=== PATIENT | female | born 1960 | race Caucasian/White ===

== ENCOUNTER 2023-08-29 10:57 | Emergency (ER) | payer BC, SELFPAY ==
[2023-08-29 11:01] VITALS: BP 164/104
[2023-08-29 11:41] VITALS: BMI 28.4
[2023-08-29 12:01] LABS: % Basophils 0.6 % (0-2); % Eosinophils 3.1 % (0-6); % Immature Granulocytes 0.1 % (0-0.5); % Lymphocytes 27.2 % (20.5-51.1); % Monocytes 8.8 % (1.7-9.3); % Neutrophils 60.2 % (42.2-75.2); Absolute Eosinophils 0.2 10^3/uL (0-0.7); Absolute Lymphocytes 1.9 10^3/uL (1.2-3.4); Absolute Monocytes 0.6 10^3/uL (0.1-0.6); Absolute Neutrophils 4.1 10^3/uL (1.4-6.5); Hematocrit 44.1 % (37.0-47.0); Mean Corpuscular Hgb 31.5 pg (27.0-31.0); Mean Corpuscular Volume 92.6 fL (81.0-99.0); Mean Platelet Volume 8.9 fL (7.4-10.4); Nucleated Red Blood Cells % 0 %; Platelet Count 255 10^3/uL (130-400); Red Blood Cell Count 4.76 10^6/uL (4.20-5.40); Red Cell Dist. Width 12.6 % (11.5-14.5); White Blood Cell Count 6.9 10^3/uL (4.8-10.8)
[2023-08-29 12:17] LABS: ALT (SGPT) 20 U/L (0-35); AST (SGOT) 27 U/L (14-36); Albumin 4.5 g/dl (3.5-5.0); Alkaline Phosphatase 60 U/L (38-126); Blood Urea Nitrogen 13 mg/dl (7-17); Calcium 9.7 mg/dl (8.4-10.2); Carbon Dioxide 29 mmol/L (22-30); Chloride 103 mmol/L (98-107); Estimated Creatinine Clearance 76 ml/min; Glucose 98 mg/dl (70-99); Potassium 4.3 mmol/L (3.5-5.1); Sodium 137 mmol/L (135-145); Total Bilirubin 0.7 mg/dl (0.2-1.3); Total Protein 7.5 g/dl (6.3-8.2); eGFR > 60.00
[2023-08-29 12:26] LABS: Troponin I < 0.012 ng/ml
--- NOTE | 2023-08-29 12:33 | ED.GENMED ---
History of Present Illness
General
Chief Complaint: Change in Mental Status
Time Seen by Provider: 08/29/23 12:05
Travel History
Have you had any contact with someone who has COVID-19?: No
Do you have any symptoms of coronavirus? Fever > 100 degrees, chills, cough, shortness of breath, sore throat, loss of taste or smell, muscle aches, or headache?: No
History of Present Illness
History of Present Illness:
63-year-old female with history of hyperlipidemia presents to the emergency department for evaluation with episode of confusion that occurred yesterday during an interview. She states that before she had several bouts of vomiting and woke up
feeling lightheaded and weak. During interview she had difficulty recalling dates and people's names, feels as though the symptoms lasted several hours before resolving. Today she feels heart palpitations and general fatigue. She has not vomited
in the past 24 hours. Denies any diarrhea or abdominal pain. Denies any new medications. No vision changes, chest pain, shortness of breath, or extremity paresthesias
Review of Systems
Review of Systems
Allergies reviewed?: Yes
All Other Systems: ROS reviewed and negative except as documented in HPI and ROS
Phy Exam
Physical Exam
Physical Exam:
GEN: Well appearing, NAD, WDWN
HEENT: Oral mucosa moist, no scleral icterus, no nasal congestion
Cardiac: Regular rate
Lung: No respiratory distress, no tachypnea
MSK: No gross deformity or injuries
Skin: Good color, no pallor or jaundice, no rashes
Neuro: AO x3; CN II-XII grossly intact. BUE strength 5/5 in all puri, sensation intact and symmetric. BLE strength 5/5 in all puri, sensation intact and symmetric
Psych: Calm, cooperative
Course
Orders/Labs/Results
Orders:
Orders
08/29/23 11:42
Electrocardiogram (*1) Urgent
Reason for Study: Other
Other Reason for Exam: Possible Stroke
IV Insert/Care/Rem.- Treatment PRN
08/29/23 11:43
EKG- Treatment ONCE
08/29/23 11:47
Complete Blood Count/With Diff Urgent
Comprehensive Metabolic Panel Urgent
Troponin I Urgent
08/29/23 12:27
CT Head W/o Iv Contrast Urgent
Comment:
Reason For Exam: transient confusion
Abnormal Lab Results
08/29/23
11:47
MCH 31.5 H pg
(27.0-31.0)
08/29/23 11:47
08/29/23 11:47
Vital Signs
Initial and Last Documented VS:
Initial Vital Signs
Temp Pulse Resp BP Pulse Ox
98.8 F 89 18 164/104 97
08/29/23 11:01 08/29/23 11:01 08/29/23 11:01 08/29/23 11:01 08/29/23 11:01
Last Documented Vital Signs
Temp Pulse Resp BP Pulse Ox
98.8 F 89 18 164/104 97
08/29/23 11:01 08/29/23 11:01 08/29/23 11:01 08/29/23 11:01 08/29/23 11:01
MDM/Problems Addressed
MDM/Problems Addressed:
63-year-old female presents with vague symptoms of fatigue, heart palpitations, and transient confusion. Do not feel that this represents a TIA given that she had associated vomiting the day before and fatigue and palpitations continuing until
today. She is neurologically nonfocal at this time. Head CT was obtained which was unremarkable. Labs are otherwise reassuring. Likely self-limited viral syndrome, supportive care and return parameters discussed
Comment
Comment:
EKG independently interpreted by me shows normal sinus rhythm at a rate of [address] changes concerning for ischemia, QTc of 451
*Critical Care Note
Total Time (30-74mins, 75-104mins- exclusive of procedures): Not Applicable
ED Attending Note
-
Portions of this chart may have been created with voice recognition software.� Occasional wrong word or��sound alike� substitutions may have occurred due to the inherent limitations of voice recognition software.
Discharge Plan
Departure
Patient Disposition: Home (Routine Discharge)
Date of Disposition: 08/29/23
Time of Disposition: 13:36
Patient with high blood pressure during this ER visit?: No
Discharge Problem:
Acute viral syndrome
Instructions: Viral Syndrome (DC)
Prescriptions:
No Action
tramadol 50 mg tablet
50 mg PO TID PRN (Reason: pain) Qty: 10 0RF
Referrals:
Deanne Neves CRNP [Family Provider] -
Interventions
Interventions:
*Risk Screen - Suicide Last Done: 08/29/23 11:39
*General Assessment Last Done: 08/29/23 11:39
*Neglect/Abuse Screening Last Done: 08/29/23 11:39
ED- Fall Risk Assessment Last Done: 08/29/23 11:39
*ED COVID-19 Vaccine History Last Done: 08/29/23 11:09
*Nursing Disposition Last Done: 08/29/23 13:39
ED- Pulmonary Assessment Last Done: 08/29/23 13:39
ED-Psychological Assessment Last Done: 08/29/23 13:39
ED- Neurological Assessment Last Done: 08/29/23 11:39
ED- Cardiac Assessment Last Done: 08/29/23 13:39
Discharge Date and Time
Discharge Date/Time: 08/29/23 13:40
Print Language: SLOVENIAN
== END 2023-08-29 13:40 | disposition home or self-care (01) ==
LOC: EMR 10:57
PROVIDERS: Physician Assistant; EMERGENCY PHYSICIAN Emergency Medicine; FAMILY PHYSICIAN Nurse Practitioner Adult Health
DX: B34.9 Viral infection, unspecified (principal); E78.5 Hyperlipidemia, unspecified
CPT/HCPCS: 99285; 70450; 80053; 84484; 85025; 93005